=== PATIENT | female | born 1960 | race African-American/Black ===

== ENCOUNTER 2018-02-18 02:38 | Emergency (ER) | payer MEDICARE ==
[2018-02-18] MEDS ORDERED: AZITHROMYCIN 500 MG TABLET PO ONE (02:46)
[2018-02-18] MEDS ORDERED: BENZONATATE 100 MG CAPSULE PO ONE (02:46)
--- NOTE | 2018-02-18 02:52 | Emergency Department Record ---
History of Present Illness - General Chief Complaint: Chest Pain Stated Complaint: CHEST PAIN, COUGH Source: Patient Mode of Arrival: Ambulatory Limitations: No limitations - History of Present Illness Initial Comments: 57 yo female presents with cough, congestion, sore throat, ear pain the last three days. She reports her has been experiencing the same symptoms. She has had subjective fever and chills with body aches. She states it hurts to cough. The sputum she is coughing is yellow. No blood in the sputum. She will cough so hard at times she has vomited. No diarrhea. No abdominal pain. No leg pain or swelling. PCP is Dr Darren Lester. She did not have a flu shot this year. She is a non smoker. MD Complaint: Cough, Fever, Nasal congestion, Rhinorrhea, Sore throat -: Days(s) (3) Quality: Aching Consistency: Constant Improves With: Nothing Worsens With: Other (coughing) Context: Sick contacts ( with the same symptoms) Associated Symptoms: Chest pain (with coughing), Cough, Fever, Nasal congestion , Rhinorrhea, Sore throat, Vomiting Treatments Prior to Arrival: None - Related Data Previous Rx's Medication Instructions Recorded Benzonatate [Tessalon] 1 cap PO Q8H PRN #15 cap 02/18/18 Ondansetron [Zofran Odt] 4 mg PO Q8H #15 tab.rapdis 02/18/18 Oseltamivir Phosphate [Tamiflu] 75 mg PO BID #10 capsule 02/18/18 Allergies Allergy/AdvReac Type Severity Reaction Status Date / Time No Known Drug Allergies Allergy Verified 01/11/15 13:47 Review of Systems Constitutional: Reports: Chills, Fever, Malaise Eyes: Denies: Eye discharge, Eye pain, Photophobia, Vision change ENT: Reports: Congestion, Ear pain, Throat pain Respiratory: Reports: Cough. Denies: Stridor, Wheezes Cardiovascular: Reports: Chest pain (with cough). Denies: Syncope Endocrine: Denies: Fatigue Gastrointestinal: Reports: Vomiting. Denies: Abdominal pain, Diarrhea Genitourinary: Denies: Dysuria Musculoskeletal: Reports: Myalgia. Denies: Arthralgia, Back pain Skin: Denies: Bruising, Change in color, Rash Neurological: Reports: Headache. Denies: Numbness, Weakness Psychiatric: Denies: Anxiety Hematological/Lymphatic: Denies: Blood Clots, Easy bleeding, Easy bruising Past Medical History - SOCIAL HISTORY Smoking Status: Never smoker - RESPIRATORY Hx Respiratory Disorders: No - CARDIOVASCULAR Hx Cardio Disorders: Yes Hx Hypertension: Yes - NEURO Hx Neuro Disorders: No - GI Hx GI Disorders: Yes Hx GI Bleed: Yes - Hx Genitourinary Disorders: Yes Hx Kidney Stones: Yes (hx) - ENDOCRINE Hx Endocrine Disorders: No - MUSCULOSKELETAL Hx Musculoskeletal Disorders: Yes Hx Arthritis: Yes - PSYCH Hx Psych Problems: No - HEMATOLOGY/ONCOLOGY Hx Hematology/Oncology Disorders: No Family Medical History Hx Cancer: Father Hx Diabetes: Father, Mother Hx Heart Disease: Mother Hx HTN: Father, Mother Hx Resp Disorders: Mother Physical Exam - General General Appearance: Alert, Oriented x3, Cooperative, No acute distress, Other ( Frequent harsh cough) Limitations: No limitations - Head Head exam: Atraumatic, Normal inspection - Eye Eye exam: Normal appearance. negative: Conjunctival injection, Scleral icterus - ENT ENT exam: Normal exam, Mucous membranes moist Ear exam: Normal external inspection Nasal Exam: Discharge Mouth exam: Normal external inspection Teeth exam: Normal inspection Throat exam: Tonsillar erythema. negative: Tonsillomegaly, Tonsillar exudate, R peritonsillar mass, L peritonsillar mass - Neck Neck exam: Normal inspection, Full ROM. negative: Tenderness - Respiratory Respiratory exam: Chest wall tenderness, Decreased breath sounds, Rhonchi. negative: Accessory muscle use, Prolonged expiratory, Respiratory distress, Stridor, Wheezes - Cardiovascular Cardiovascular Exam: Regular rate, Normal rhythm, Normal heart sounds Peripheral Pulses: 2+: Radial (R), Radial (L) - GI/Abdominal GI/Abdominal exam: Soft. negative: Tenderness - Rectal Rectal exam: Deferred - exam: Deferred - Extremities Extremities exam: Normal inspection. negative: Tenderness - Back Back exam: Denies: CVA tenderness (R), CVA tenderness (L) - Neurological Neurological exam: Alert, Oriented X3 - Psychiatric Psychiatric exam: Normal affect, Normal mood - Skin Skin exam: Dry, Intact, Normal color, Warm Course - Reevaluation(s) Reevaluation #1: EKG 02:47 NSR, rate 88, intervals normal, axis L, likely LVH, ST NS CW LVH. No old CXR was reviewed. Prelim read is no acute change. No infiltrate 02/18/18 03:13 The influenza swabs are negative 02/18/18 03:21 02/18/18 05:09 The patient's influenza swab was positive She will be treated with Tamiflu as well given the exposure and symptoms Disposition Disposition: Discharge Clinical Impression: Influenza A Disposition: Home, Self-Care Condition: (1) Good Instructions: Influenza (ED), Acute Bronchitis (ED) Additional Instructions: Rest and stay well hydrated Take the antibiotic as directed Follow up with your doctor this week as scheduled Prescriptions: Benzonatate [Tessalon] 1 cap PO Q8H PRN #15 cap PRN Reason: Cough Ondansetron [Zofran Odt] 4 mg PO Q8H #15 tab.rapdis Oseltamivir Phosphate [Tamiflu] 75 mg PO BID #10 capsule Forms: Patient Portal Access Time of Disposition: 03:23 Quality - Quality Measures Quality Measures: N/A - Blood Pressure Screening Does Patient Have Any of the Following: Active Dx of HTN Blood Pressure Classification: Pre-Hypertensive BP Reading Systolic Measurement: 122 Diastolic Measurement: 69 Screening for High Blood Pressure: Patient Exclusion, Hx of HTN [[id number]]
[2018-02-18 03:14] LABS: INFLUENZA A NEGATIVE (NEGATIVE); INFLUENZA B NEGATIVE (NEGATIVE)
[2018-02-18] MEDS ORDERED: ONDANSETRON 4 MG ODT TABLET SL ONE (03:20)
--- NOTE | 2018-02-19 21:34 | RADIOLOGY REPORT ---
EXAM: CHEST 2 VIEWS HISTORY: DIFFICULTY IN BREATHING. TECHNIQUE: Frontal and lateral views of the chest were performed. FINDINGS: Heart size is normal. Lung hunt are clear. No infiltrate or pleural effusion. The osseous structures are normal. IMPRESSION: NO ACUTE PULMONARY DISEASE PROCESS. JOB NUMBER: [id number] MTDD
== END 2018-02-18 03:40 | disposition home or self-care (01) ==
LOC: ER 02:38
DX: J10.1 Influenza due to other identified influenza virus with other respiratory manifestations (principal); R06.00 Dyspnea, unspecified; R07.9 Chest pain, unspecified; I10 Essential (primary) hypertension
CPT/HCPCS: 71046; 87400; 93005; 93010; 99284